=== PATIENT | female | born 1955 | race Caucasian/White ===

== ENCOUNTER 2024-05-06 07:15 | Day surgery (SDC) | payer BC ==
[~2024-05-06 07:15] MED LIST: Propofol 200 MG/20 ML SDV ONE; Sodium Chloride 0.9% 10 ML Syringe FLUSH PRN; Sodium Chloride 0.9% 10 ML Syringe FLUSH SCH
[2024-05-06] MEDS: Lactated Ringers 1,000 ML IV SCH (07:15)
[2024-05-06] MEDS ORDERED: Propofol 200 MG/20 ML SDV ONE (07:26)
[2024-05-06] MEDS: Lidocaine 1% 10 ML MDV ONE (08:26)
[2024-05-06] MEDS: Bupivacaine 0.25% 10 ML SDV ONE (08:26)
[2024-05-06 09:14] VITALS: BP 132/83; PULSE 71
== END 2024-05-06 09:18 | disposition home or self-care (01) ==
LOC: JD.SDS 07:15
PROVIDERS: ATTEND Orthopaedic Surgery
DX: M65.842 Other synovitis and tenosynovitis, left hand (principal); I10 Essential (primary) hypertension; E78.2 Mixed hyperlipidemia; Z79.82 Long term (current) use of aspirin; Z79.899 Other long term (current) drug therapy; Z87.891 Personal history of nicotine dependence
CPT/HCPCS: 26055; J0665; J2003; J2704; J7120; 01810